=== PATIENT | female | born 1950 | race Caucasian/White ===

== ENCOUNTER → 2016-11-21 | Outpatient (CLI) | payer BC | LOC: FIMAGING 12:16 | DX: Z12.31 Encounter for screening mammogram for malignant neoplasm of breast (principal) | CPT/HCPCS: G0202 ==

== ENCOUNTER → 2016-12-11 | Outpatient (CLI) | payer BC | LOC: FIMAGING 13:21 | PROVIDERS: ATTEND Physician Assistant Medical | DX: N63 Unspecified lump in breast (principal) | CPT/HCPCS: G0206 ==

== ENCOUNTER → 2016-12-24 | Outpatient (CLI) | payer BC ==
[~2016-12-24] MED LIST: BUPIVACAINE 0.5% 10 ML SDV ONE; LIDO/EPI 1% **Not for Epidural 20 ML MDV ONE; LIDOCAINE 1% 30 ML SDV ONE; NA BICARBONATE 50 MEQ/50 ML VIAL ONE; THROMBIN (BOVINE) 5,000 UNIT VIAL TP ONE
== END ==
LOC: FIMAGING 11:28
PROVIDERS: ATTEND Physician Assistant Medical
PROC: 0HBT3ZX Excision of Right Breast, Percutaneous Approach, Diagnostic (ICD-10-PCS; principal; 2016-12-24)
DX: N60.11 Diffuse cystic mastopathy of right breast (principal); N60.91 Unspecified benign mammary dysplasia of right breast; N60.81 Other benign mammary dysplasias of right breast
CPT/HCPCS: G0206

== ENCOUNTER → 2017-01-02 | Outpatient (CLI) | payer BC | LOC: FIMAGING 09:49 | PROVIDERS: ATTEND Family Medicine | DX: R31.29 Other microscopic hematuria (principal) ==

== ENCOUNTER → 2017-08-14 | Outpatient (CLI) | payer BC | LOC: FIMAGING 10:10 | PROVIDERS: ATTEND Obstetrics & Gynecology Gynecology | DX: Z09 Encounter for follow-up examination after completed treatment for conditions other than malignant neoplasm (principal); N60.99 Unspecified benign mammary dysplasia of unspecified breast ==

== ENCOUNTER → 2017-11-26 | Outpatient (CLI) | payer BC | LOC: FIMAGING 12:45 | PROVIDERS: ATTEND Physician Assistant Medical | DX: Z12.31 Encounter for screening mammogram for malignant neoplasm of breast (principal) ==

== ENCOUNTER 2018-09-24 14:53 | Emergency (ER) | payer BC ==
--- NOTE | 2018-09-24 16:08 | EDPHY ---
H & P Stated Complaint: tripped & fell hit L eyebrow, R knee lac disbursement clerk Time Seen by Provider: 09/24/18 15:51 HPI/ROS: CHIEF COMPLAINT: Head injury, right knee injury HISTORY OF PRESENT ILLNESS: 67-year-old female with no anticoagulant use arrives via private vehicle. Patient has a history of polio, has a baseline of unstable gait subsequently. Today she was walking, tripped on incongruity on the ground, fell forward impacting her left frontal region as well as sustaining laceration and pain to right anterior knee. No loss of consciousness. No headache. No nausea or vomiting. No midline C-spine pain. No peripheral paresthesia, weakness, numbness. No chest pain. This was a mechanical episode with no syncope. No prodrome. REVIEW OF SYSTEMS: 10 systems reviewed and negative with the exception of the elements mentioned in the history of present illness PAST MEDICAL/SURGICAL HISTORY: [no anticoagulant use. History of polio.. History of Echevarria jovanna placement . SOCIAL HISTORY: denies alcohol use at time of incident PHYSICAL EXAM 1) GENERAL: Well-developed, well-nourished, alert and oriented. Appears to be in no acute distress. Answering questions appropriately. 2) HEAD: [Normocephalic, left lateral periorbital contusion and abrasion with no laceration. 3) HEENT: Pupils equal, round, reactive to light bilaterally. Negative Horners. Nasopharynx, oropharynx, clear. No deformity or angulation of nose. No septal hematoma. Extraocular movements are intact and do not elicit abnormal gaze or diplopia. No rhinorrhea. No oral trauma. Ears bilaterally with normal tympanic membranes. No hemotympanum. No fluid or blood in the external auditory canal. No raccoon eyes. No Quiroz sign. Teeth are normally aligned with no gross malocclusion, TMJ bilaterally nontender, facial bones nontender including the zygomatic arch, maxilla mandible. 4) NECK: No cervical collar is on. Posterior cervical spine is nontender, no stepoff, no effusion. Full range of motion which does not elicit any midline cervical spine pain, no posterior midline tenderness, no step-off. 5) LUNGS: Clear to auscultation bilaterally, no wheezes, no rhonchi, no retractions. No obvious signs of trauma. No chest wall pain. No flaring, no grunting. Moving symmetrically. No crepitus. 6) HEART: Regular rate and rhythm, 7) ABDOMEN: No guarding, no rebound, no focal tenderness, no peritoneal signs, no signs of trauma, no ecchymosis 8) MUSCULOSKELETAL: Right lower extremity: 2 discrete, 2 cm laceration overlying the patella. Full flexion extension of the right knee with no gross instability. No clinical evidence of traumatic arthrotomy. Proximally and distally nontender. Distal DP PT pulses present and brisk. Otherwise, Moving all extremities, no focal areas of tenderness, no obvious trauma. 9) BACK: Midline surgical scar noted with No midline vertebral tenderness, no fluctuance, no step-off, no obvious trauma, no visual or palpable abnormality. 10) SKIN: laceration right knee DIFFERENTIAL DIAGNOSIS: Not necessarily in any particular order, my differential diagnosis includes, but is not limited to, concussion, skull fracture, intraparenchymal contusion, subarachnoid, subdural and epidural hematoma. The patient understands that this diagnosis is provisional and can never be 100% accurate. - Personal History Current Tetanus/Diphtheria Vaccine: Unsure Current Tetanus Diphtheria and Acellular Pertussis (TDAP): Unsure - Medical/Surgical History Hx Asthma: No Hx Chronic Respiratory Disease: No Hx Diabetes: No Hx Cardiac Disease: No Hx Renal Disease: No Hx Cirrhosis: No Hx Alcoholism: No Hx HIV/AIDS: No Hx Splenectomy or Spleen Trauma: No Other PMH: Polio. scoliosis with rods placed. glaucoma - Social History Smoking Status: Never smoked Constitutional: Initial Vital Signs Temperature (C) 36.5 C 09/24/18 15:11 Heart Rate 90 09/24/18 15:11 Respiratory Rate 18 09/24/18 15:11 Blood Pressure 140/102 H 09/24/18 15:11 O2 Sat (%) 97 09/24/18 15:11 O2 Delivery Mode Room Air Allergies/Adverse Reactions: No Known Allergies Allergy (Unverified 09/24/18 15:10) Home Medications: Medication Instructions Recorded Cephalexin [Keflex] 500 mg PO TID 5 Days cap 09/24/18 Cymbalta 09/24/18 Lisinopril 09/24/18 Travatan Z 09/24/18 Vicodin 5-300 mg Tablet 09/24/18 Medical Decision Making - Diagnostics Imaging Results: Imaging Impressions Head CT 09/24/18 16:02 Impression: Negative. No acute fracture or evidence of acute intracranial injury. Findings discussed with Emergency Department physician printer floor covering assistant, Cindy Malone on 09/24/2018, 16:54. Knee X-Ray 09/24/18 16:02 Impression: 1. No acute fracture right knee. 2. Moderate medial compartment patellofemoral joint space narrowing with associated medial osteophytes. 3. Intra-articular calcific fragment suspected posterior to the tibial spine. 4. Soft tissue contusion superficial to the patella. Images reviewed myself Procedures: Procedure: Laceration repair right knee I explained the indications, risks and benefits for both laceration repair and anesthetic administration. Verbal consent was obtained from the patient. The laceration on the right anterior knee was anesthetized using 0.5% bupivicaine with epinephrine. After anesthetic administered the patient was observed for a period of time and had no apparent adverse effects. The wound was cleaned, prepped, draped in normal sterile fashion and explored to its base. No foreign body seen, no foreign bodies palpated. There were no deep structures involved. No clinical evidence of joint capsule compromise. The lacerations were each closed with 3 simple interrupted 4 0 Prolene sutures for total of 6 sutures. The wound repair was complex. The procedure was performed by myself. Patient has been informed that scarring will occur, although efforts have been made to minimize this. Bulky Kel wrap dressing applied. ED Course/Re-evaluation: 4:05 p.m.: Head CT ordered in this patient for trauma for the following indication: Greater than 65 years old. Will also obtain x-ray of the right knee. Patient was re-evaluated with serial exams. I reviewed his negative CT imaging with radiologist, reviewed the images myself and discussed the imaging results with the patient. Discussed with her my usual customary head injury precautions instructions. Regarding the patient's right knee injury, I think that traumatic arthrotomy is less than likely in this patient. This is based on exam findings and no evidence of free intra-articular air. At this time I do not think that the benefits of CT imaging or saline load testing of the joint outweigh the risks. I discussed this with the patient. She verbalized understanding accepting this. Definitely if she develops erythema, pain with ambulation or any other symptoms she needs to seek immediate medical attention. I also discussed with patient's limitations of x-ray, notably that non osseous injury is not ruled out , occult fracture not ruled out. Recommended follow-up with orthopedics and provide her this referral information. I Do not think that emergent MRI is indicated. 4:27 p.m.: CT imaging of the head interpreted by staff radiologist is negative for posttraumatic sequelae. Images reviewed myself. 5:03 p.m.: Patient will be discharged home with my usual and customary orthopedic and head injury precautions instructions. She feels comfortable being discharged. Departure - Departure Disposition: Home, Routine, Self-Care Clinical Impression: History of poliomyelitis Head injury due to trauma Qualifiers: Encounter type: initial encounter Qualified Code(s): S09.90XA - Unspecified injury of head, initial encounter Laceration of right knee Qualifiers: Encounter type: initial encounter Qualified Code(s): S81.011A - Laceration without foreign body, right knee, initial encounter Condition: Good Instructions: Laceration (ED), Head Injury (ED) Additional Instructions: Return to the ER if you develop redness, swelling, discharge, warmth to the wound, red streaks going up your leg, painful walking, painful range of motion or any other symptoms that concern you. I recommend you follow up with and orthopedic surgeon. Although the x-ray demonstrates no definitive bony injury, non bony injury such as ligament, tendon, muscle is not ruled out. Regarding your head injury, ALTHOUGH THERE IS NO EVIDENCE OF SERIOUS HEAD INJURY AT THIS TIME, DELAYED SIGNS CAN APPEAR 24 TO 48 HOURS AFTER INJURY. PLEASE RETURN TO THE EMERGENCY DEPARTMENT (ED) IMMEDIATELY IF YOU HAVE INCREASED HEADACHE, PERSISTENT HEADACHE, VOMITING, WEAKNESS, CONFUSION OR VISUAL PROBLEMS. WE RECOMMEND THAT YOU DO NOT RESUME CONTACT SPORTS OR ACTIVITIES THAT TAKE COORDINATION OR BALANCE SUCH SKIING OR RIDING A BICYCLE UNTIL CLEARED TO DO SO BY YOUR DOCTOR OR BY A NEUROLOGIST. Referrals: Kailash Rose MD [Medical Doctor] - 5-7 days, call for appt. Return, to the ER in 14 days for suture removal [Other] - As per Instructions Prescriptions: Cephalexin [Keflex] 500 mg PO TID 5 Days cap
[2018-09-24] MEDS ORDERED: CEPHALEXIN 500 MG CAP PO ONE (16:58)
[2018-09-24 17:16] VITALS: BP 164/98
== END 2018-09-24 17:16 | disposition home or self-care (01) ==
PROC: 0HQKXZZ Repair Right Lower Leg Skin, External Approach (ICD-10-PCS; principal; 2018-09-24)
DX: S81.011A Laceration without foreign body, right knee, initial encounter (principal); S09.90XA Unspecified injury of head, initial encounter; R26.81 Unsteadiness on feet; W01.198A Fall on same level from slipping, tripping and stumbling with subsequent striking against other object, initial encounter; Y93.01 Activity, walking, marching and hiking; Y92.480 Sidewalk as the place of occurrence of the external cause; Z86.12 Personal history of poliomyelitis